=== PATIENT | male | born 1980 | race Caucasian/White ===

== ENCOUNTER 2018-04-16 17:54 | Emergency (ER) | payer MEDICAID ==
[~2018-04-16] VITALS: Ht 195.6 cm; Wt 93.0 kg
[~2018-04-16 17:54] MED LIST: HYDR-4383 PO
[2018-04-16 18:27] VITALS: BP 144/99
== END 2018-04-16 22:58 | disposition left against medical advice (07) ==
LOC: ER 17:54
DX: I83.92 Asymptomatic varicose veins of left lower extremity (principal); Z53.21 Procedure and treatment not carried out due to patient leaving prior to being seen by health care provider

== ENCOUNTER 2018-12-10 02:22 | Emergency (ER) | payer MEDICAID ==
[~2018-12-10] VITALS: Ht 195.6 cm; Wt 93.0 kg
[2018-12-10 02:25] VITALS: BP 145/100
== END 2018-12-10 03:22 ==
LOC: ER 02:23
DX: F19.10 Other psychoactive substance abuse, uncomplicated (principal); F12.90 Cannabis use, unspecified, uncomplicated; F15.90 Other stimulant use, unspecified, uncomplicated; Z98.890 Other specified postprocedural states
CPT/HCPCS: 99283